=== PATIENT | male | born 1955 | race Caucasian/White ===

== ENCOUNTER 2022-10-15 11:42 | Day surgery (SDC) | payer MEDICARE, BC ==
[~2022-10-15 11:42] MED LIST: Lactated Ringers 1,000 ML IV SCH; Lidocaine 1%/Sod Bicarbonate in NS 8.4% 1 ML Syringe IDERM PRN; Sodium Chloride 0.9% 10 ML Syringe FLUSH PRN; Sodium Chloride 0.9% 10 ML Syringe FLUSH SCH
[2022-10-15] MEDS ORDERED: fentaNYL 250 MCG/5 ML SDV ONE (13:04)
[2022-10-15] MEDS ORDERED: Rocuronium 50 MG/5 ML Vial ONE (13:04)
[2022-10-15] MEDS ORDERED: Lactated Ringers 1,000 ML ONE (13:04)
[2022-10-15] MEDS ORDERED: Midazolam 1 MG/ML 2 ML SDV ONE (13:04)
[2022-10-15] MEDS ORDERED: Propofol 200 MG/20 ML SDV ONE (13:04)
[2022-10-15] MEDS ORDERED: Ondansetron 4 MG/2 ML SDV ONE (13:05)
[2022-10-15] MEDS ORDERED: Lidocaine 1% 4 ML ONE (13:05)
[2022-10-15] MEDS: Bupivacaine 0.5%/EPINEPHrine 1:200,000 50 ML MDV ONE ×2 (13:09→13:58)
[2022-10-15] MEDS: Lidocaine 1% with EPINEPHrine 1:100,000 20 ML MDV ONE ×2 (13:10→13:58)
[2022-10-15] MEDS ORDERED: VANCOmycin 2 GM/400 ML 2 GM in Premix Bag 1 BAG IV ONE (13:30)
[2022-10-15] MEDS ORDERED: Ketorolac 30 MG/ML SDV ONE (15:09)
[2022-10-15] MEDS ORDERED: fentaNYL 100 MCG/2 ML SDV IVPUSH PRN (15:35)
[2022-10-15] MEDS ORDERED: Ondansetron 4 MG/2 ML SDV IVPUSH PRN (15:35)
[2022-10-15] MEDS ORDERED: HYDROmorphone 0.5 MG/0.5 ML Syringe IVPUSH PRN (15:35)
[2022-10-15] MEDS ORDERED: Acetaminophen/oxyCODONE 325-5 MG Tab PO ONE (16:21)
== END 2022-10-15 18:24 | disposition home or self-care (01) ==
LOC: JD.SDS 11:42 → MERGE 11:45 → JD.SDS 18:24
PROVIDERS: ATTEND Surgery
DX: K40.20 Bilateral inguinal hernia, without obstruction or gangrene, not specified as recurrent (principal); D17.6 Benign lipomatous neoplasm of spermatic cord; I44.7 Left bundle-branch block, unspecified; E11.9 Type 2 diabetes mellitus without complications; I10 Essential (primary) hypertension; I73.9 Peripheral vascular disease, unspecified; K21.9 Gastro-esophageal reflux disease without esophagitis; M10.9 Gout, unspecified; E66.9 Obesity, unspecified; Z88.8 Allergy status to other drugs, medicaments and biological substances; E78.5 Hyperlipidemia, unspecified; Z79.82 Long term (current) use of aspirin; Z79.84 Long term (current) use of oral hypoglycemic drugs; Z79.899 Other long term (current) drug therapy; Z88.6 Allergy status to analgesic agent; Z88.1 Allergy status to other antibiotic agents; Z68.34 Body mass index [BMI] 34.0-34.9, adult
CPT/HCPCS: 49650; A9270; C1727; C1765; C1781; J1170; J1885; J2250; J2405; J2704; J3010; J3370; J3490; J7120